=== PATIENT | female | born 1990 | race Caucasian/White ===

== ENCOUNTER 2024-08-27 13:00 | Day surgery (SDC) | payer BC, SELFPAY ==
[2024-08-25 06:56] VITALS: BMI 20.7
[2024-08-25 08:30] LABS: HCG Qualitative,Urine Negative
--- NOTE | 2024-08-26 14:35 | SUR.PREOP ---
Voice message left for pt to come in tomorrow at 1300 for surgery.
[2024-08-27] MEDS: OXYMETAZOLINE NAS SPRY 0.05% 15 ML BTL NASAL (13:38)
[2024-08-27] MEDS: RINGERS LACTATED 1000 ML 1,000 ML 20 ML IV (13:39)
[2024-08-27 13:47] VITALS: BP 116/80; PULSE 64; RESP 13; TEMP 36.5; O2SAT 100; BMI 19.8
[2024-08-27 14:45] VITALS: BP 109/78; PULSE 75; RESP 14; TEMP 37.1; O2SAT 99
[2024-08-27 14:50] VITALS: BP 113/74; PULSE 64; RESP 18; O2SAT 96
--- NOTE | 2024-08-27 14:53 | PD.SUROPNT ---
Date of Procedure 08/27/24 Pre Op Diagnosis Bilateral eustachian tube dysfunction Post Op Diagnosis Bilateral eustachian tube dysfunction Procedure Bilateral eustachian tube balloon dilation with a clear eustachian tube dilator under endoscopic visualization Findings Both eustachian tubes were stenotic. There is some inflammatory tissue overlying the orifice on the right side. There was excessive clear mucus in both sides. Procedure Description Indications: This is a 33-year-old female whose had recurrent serous otitis media as well as chronic eustachian tube dysfunction and had ear tubes placed in the past. Patient wished to proceed with eustachian tube dilation understanding risk of bleeding infection further ear complications. Patient was transferred to the operative suite where she was sedated. Patient was sterilely draped and a timeout performed. Under the 0 degree scope the eustachian tube orifice is first visualized on the left side. The balloon was carefully threaded up into the eustachian tube to the yellow line. Balloon was then inflated and during inflation the balloon backed out slightly. Balloon was inflated for 2 minutes deflated and removed. A similar procedure was then performed on the right side. Patient had extensive clear mucus coming out of the right eustachian tube. The procedure was terminated the patient was awakened and taken the recovery room in stable condition Anesthesia IV sedation Pathology / specimen None Estimated Blood Loss 1 Surgeon Odin Garcia DO Surgical Staff Operation Date: 08/27/24 15:15 Case Staff BUSINESS CONTROL SPECIALIST: Dave Miller
[2024-08-27 14:55] VITALS: BP 107/77; PULSE 63; RESP 17; O2SAT 96
[2024-08-27 15:10] VITALS: BP 116/85; PULSE 58; RESP 18; O2SAT 98
--- NOTE | 2024-08-27 15:12 | SUR.PHASEII ---
1445: Pt received in [facility] via [facility]. Report from Prudence BURGOS and Caden HURTADO. Pt groggy. Easily aroused with eye opening then drifts back to sleep. Resp even, unlabored. VS stable. No c/o pain, discomfort.
[2024-08-27 15:25] VITALS: BP 118/83; PULSE 71; RESP 20; TEMP 37; O2SAT 98
--- NOTE | 2024-08-27 16:00 | SUR.PHASEII ---
1430: Pt fully awake, oriented x3. VS stable. Denies pain. Pt sitting up tolerating po fluids with no difficulty swallowing and no n/v. 1445: Pt dressed. Assisted to restroom. Ambulation steady. Pt and mother stated understanding of discharge instructions. Pt discharged from [facility] in stable condition.
== END 2024-08-27 14:45 | disposition home or self-care (01) ==
LOC: S2EX 08-28 08:32
PROVIDERS: Referring Provider Otolaryngology; Visit Provider Otolaryngology
PROC: (CPT 69706; principal; 2024-08-27 15:00)
DX: H68.003 Unspecified Eustachian salpingitis, bilateral (principal)
CPT/HCPCS: 69706; 81025; A4217; C1726; J1100; J2250; J2405; J2704; J3010; J3490; J7120; A9270